=== PATIENT | male | born 1970 | race Caucasian/White ===

== ENCOUNTER 2022-02-23 23:16 | Emergency (ER) | payer OTHER ==
[~2022-02-23] VITALS: Ht 175.3 cm; Wt 131.5 kg
[2022-02-24] MEDS ORDERED: ALLOPURINOL100 MG (00:10)
[2022-02-24] MEDS ORDERED: ZITHROMAX500 MG PO (03:27)
[2022-02-24] MEDS ORDERED: MOBIC15 MG PO (03:27)
== END 2022-02-24 03:39 ==
LOC: ER 23:16
DX: M10.9 Gout, unspecified (principal); M25.473 Effusion, unspecified ankle